=== PATIENT | male | born 1935 | race Caucasian/White ===

== ENCOUNTER 2018-02-13 03:56 | Inpatient (IN) | payer MEDICARE, OTHER ==
[2018-02-13] MEDS ORDERED: Adenosine* 3 MG/ML VIAL ONE (04:03)
[2018-02-13] MEDS ORDERED: fentaNYL* 50 MCG/ML 2 ML VIAL (100 MCG VIAL) ONE (04:11)
[2018-02-13] MEDS ORDERED: Midazolam* 1 MG/ML 5 ML VIAL (5 MG) ONE ×2 (04:11→04:17)
[2018-02-13] MEDS ORDERED: Flumazenil* 0.1 MG/ML 5 ML MDV ONE (04:21)
[2018-02-13] MEDS ORDERED: Flumazenil* 0.1 MG/ML 5 ML MDV IV ONE (05:05)
[2018-02-13] MEDS ORDERED: Midazolam* 1 MG/ML 5 ML VIAL (5 MG) SLOW PUSH ONE (05:05)
[2018-02-13] MEDS ORDERED: fentaNYL* 50 MCG/ML 2 ML VIAL (100 MCG VIAL) IV SLOW PU ONE (05:05)
[2018-02-13] MEDS ORDERED: Adenosine* 3 MG/ML VIAL IV PUSH ONE (05:07)
[2018-02-13 05:53] LABS: EGFR Non-African American 48.6 (>60)
[2018-02-13 05:56] LABS: ABS Basophils 0.1 10^3/ul (0-0.2); ABS Eosinophils 0.1 10^3/ul (0-0.6); ABS Lymphocytes 1.7 10^3/ul (1.0-4.8); ABS Monocytes 1.3 10^3/ul (0-0.8); ABS Neutrophils 8.2 10^3/ul (1.5-7.7); ABS Nucleated RBC 0 10^3/ul; Hematocrit 48 % (42-52); Hemoglobin 16.4 g/dl (14.0-18.0); Lymphocyte % 14.8 % (25-47); Mean Corpuscular HGB Conc 34 g/dl (31-36); Mean Corpuscular Hemoglobin 32 pg (27-31); Mean Corpuscular Volume 95 fL (80-94); Mean Platelet Volume 8.8 um3 (7.4-10.4); Nucleated Red Blood Cells % 0.1; Platelet Count 170 10^3/ul (150-450); Red Blood Count 5.05 10^6/ul (4.0-5.4); Red Cell Distribution Width 13 % (10.5-15); White Blood Count 11.3 10^3/ul (3.5-10.8)
[2018-02-13] MEDS ORDERED: Levothyroxine TAB* 100 MCG TAB PO SCH (06:00)
--- NOTE | 2018-02-13 07:08 | ED ---
Ranjit Jordan Julia, scribed for Felix Mcallister MD on 02/13/18 at 0414 . Palpitations / Dysrhythmia - HPI Summary HPI Summary: This patient is a 83 year old M BIBA to [facility] with a chief complaint of fast heart rate, weakness, and dizziness this evening. EMS reports that he pulled over at the police station en route to the hospital because he was unable to drive himself further. EMS reports a regular heart rate for 140 BPM. EMS reports extensive cardiac history including AK 35 years ago. - History of Current Complaint Time Seen by Provider: 02/13/18 04:01 Hx Obtained From: EMS Hx From Patient Unobtainable Due To: Extremis Timing: Constant Character: Fast Associated Signs & Symptoms: Dizzy - Allergy/Home Medications Allergies/Adverse Reactions: Allergies Allergy/AdvReac Type Severity Reaction Status Date / Time No Known Allergies Allergy Verified 02/13/18 04:30 PMH/Surg Hx/FS Hx/Imm Hx Cardiovascular History: Reports: Hx Coronary Artery Disease, Hx Myocardial Infarction EENT History: Denies: Hx Deafness Review of Systems Positive: Palpitations Neurological: Other - dizziness Positive: Weakness All Other Systems Reviewed And Are Negative: Yes Physical Exam - Summary Physical Exam Summary: Appearance: ill-appearing elderly man Skin: Warm, dry, no obvious rash, manrique Eyes: sclera anicteric, no conjunctival pallor ENT: mucous membranes moist, pharynx appears normal Neck: Supple, nontender Respiratory: Clear to auscultation, no signs of respiratory distress Cardiovascular: Tachycardia. Borderline low blood pressure. Normal S1, S2. No murmurs. Normal distal pulses in tibial and radial bilaterally. Abdomen: Soft, nontender, normal active bowel sounds present Musculoskeletal: Normal, Strength/ROM Intact Neurological: A&Ox3, awake and alert, mentation is normal, speech is fluent and appropriate, answers questions appropriately Psychiatric: affect is normal, does not appear anxious or depressed Triage Information Reviewed: Yes Vital Signs Reviewed: Yes Procedures - Additional Procedures Additional Procedures: cardioversion/defib - Pt presents with regular wide complex tachycardia, differential VT vs SVT with aberrancy. Adenosine tried without success. Emergent cardioversion felt to be indicated due to patient with borderline low BP, feeling weak and lightheaded, with ill appearance, looks manrique. Pt sedated with versed and fentanyl to good effect, cardioverted with 120 J successfully to NSR. Recovery complicated by moderate hypoxemia requiring ventimask and ultimately romazicon to reverse versed. Diagnostics - Laboratory Result Diagrams: 02/13/18 05:19 02/13/18 05:19 Lab Statement: Any lab studies that have been ordered have been reviewed, and results considered in the medical decision making process. - EKG 0406 Cardiac Rate: Tachycardia EKG Rhythm: V-Tachycardia EKG Interpretation: Wide complex regular tachycardia, likely VT vs less likely SVT w/aberrancy 0422 Cardiac Rate: NL EKG Rhythm: Sinus Rhythm ST Segment: Normal Ectopy: None EKG Comparison: Other - converted to NSR Course/Dx - Course Course Of Treatment: Hospitalist asked that cardiology be consulted. I spoke with Dr. Monteiro at 0645 regarding the patient and his course, he will see the patient on arrival to the hospital. Pt remains stable. - Diagnoses Provider Diagnoses: Ventricular tachycardia - Physician Notifications Discussed Care Of Patient With: Serafin Casillas - hospitalist Time Discussed With Above Provider: 05:00 Instructed by Provider To: Admit As Inpatient - He additonally recommends informing the electrical design engineer internal controls manager. At 06:48 Dr. Monteiro was informed of the patient and will agree to see this patient on his rounds later today. - Critical Care Time Critical Care Time: 30-74 min - Elderly man with unstable tachyarrhythmia, requiring IV antiarrhythmics and electrical cardioversion, with conscious sedation. Those procedures excluded from critical care time, pt required frequent reassessments. Total time approx 40 minutes. Discharge - Sign-Out/Discharge Documenting (check all that apply): Discharge/Admit/Transfer - Discharge Plan Condition: Improved Disposition: ADMITTED TO [facility] Referrals: Corazon Levy MD [Primary Care Provider] - - Billing Disposition and Condition Condition: IMPROVED Disposition: [facility] [place] The documentation as recorded by the Ranjit reese Julia accurately reflects the service I personally performed and the decisions made by me, Felix Mcallister MD.
--- NOTE | 2018-02-13 08:06 | RAD ---
HISTORY: Tachycardia COMPARISONS: None VIEWS: 1: frontal portable view of the chest at 5:25 AM FINDINGS: LINES AND TUBES: None. CARDIOMEDIASTINAL SILHOUETTE: The cardiac silhouette is mildly enlarged. The cardiomediastinal silhouette is otherwise normal for portable technique. PLEURA: The costophrenic angles are sharp. No pleural abnormalities are noted. LUNG PARENCHYMA: The lungs are clear. ABDOMEN: The upper abdomen is clear. There is no subphrenic gas. BONES AND SOFT TISSUES: No bone or soft tissue abnormalities are noted. IMPRESSION: MILD CARDIOMEGALY. NO ACTIVE CARDIOPULMONARY DISEASE.
[2018-02-13] MEDS ORDERED: Acetaminophen TAB* 325 MG PO PRN (08:55)
[2018-02-13] MEDS ORDERED: Metoprolol Succinate XL TAB* 25 MG PO SCH (09:00)
[2018-02-13] MEDS ORDERED: Aspirin EC TAB* 81 MG TAB.EC PO SCH (09:00)
[2018-02-13] MEDS ORDERED: Tamsulosin CAP* 0.4 MG PO SCH (09:00)
[2018-02-13] MEDS ORDERED: Finasteride TAB* 5 MG PO SCH (09:00)
[2018-02-13] MEDS ORDERED: D5NS 0.9% 1000 ML BAG* 1,000 ML IV SCH (09:00)
[2018-02-13] MEDS ORDERED: Perflutren Lipid Microsphere* 3 ML VIAL ONE (10:08)
[2018-02-13] MEDS ORDERED: Potassium Chlor TAB* 20 MEQ TAB.ER PO ONE (11:32)
--- NOTE | 2018-02-13 11:43 | HP ---
CC: Dr. Agee, [facility] Cardiology Department/ Electrophysiology Department; Dr. Schwartz; Dr. Corazon Levy * HISTORY AND PHYSICAL: DATE OF ADMISSION: 02/13/18 PRIMARY CARE PROVIDER: Dr. Corazon Levy. CHIEF COMPLAINT: Palpitations. HISTORY OF PRESENT ILLNESS: Moses Terrazas is an 83-year-old male with history of ischemic cardiomyopathy with EF of 30%, who refused ICD in the past, but he has history of ventricular tachycardia as well as paroxysmal A-flutter who presented to the hospital complaining of palpitations. He was noted to have wide ventricular complex tachycardia with a heart rate of 164, likely ventricular tachycardia or SVT with aberrancy. Adenosine did not work to pharmacologically cardiovert this patient in the emergency department, and the patient subsequently was cardioverted with DC cardioversion in the ED. The patient was successfully cardioverted to sinus rhythm, currently in sinus tachycardia. Mr. Terrazas told me that me that he started experiencing palpitations. He thinks that he is in bed but he really does not remember. He states that he waited for approximately 2 hours but he continued to feel dizzy with generalized weakness. He denies shortness of breath or chest pain. He stated that initially his pulse was fast and irregular. Otherwise, he had been in his usual state of health. He exercises 4 times a week and he works the treadmill for 10 minutes without any problems at baseline. Recently, he went to see an electrophysiology specialist in [place], Dr. Agee , on 12/27/17 who was following up on the patient's loop recorder implanted in the past. PAST MEDICAL HISTORY: 1. History of ischemic cardiomyopathy, EF of 30%. The patient refused ICD in the past. 2. History of ischemic cardiomyopathy and chronic systolic CHF. 3. History of nonsustained V-tach in the past. 4. History of paroxysmal atrial flutter in the past. 5. Status post loop recorder placement in the past. The patient still continues to have the loop recorder implanted. 6. History of anterior wall PR in 1995 when the patient was visiting [facility]. At that point, the patient was noted to have 100% LAD occlusion and medical treatment. 7. Obstructive sleep apnea, not on CPAP. 8. Hypertension. 9. Dyslipidemia. 10. Hypothyroidism. 11. History of subdural hematoma with dionicio hole placement when the patient was on Coumadin. The patient currently is okay for aspirin only. CURRENT MEDICATIONS: Include: 1. Aspirin 81 mg daily. 2. Synthroid 100 mcg daily. 3. Toprol XL 50 mg daily. 4. Flomax 0.4 mg b.i.d. 5. Vitamin C 500 mg daily. ALLERGIES: LIPITOR caused myalgias, but the patient had successfully been treated with Crestor. FAMILY HISTORY: Positive for father who of PR and mother who of "old age" in her 90s. SOCIAL HISTORY: The patient denies any tobacco, alcohol or drug use. He lives alone and he could not name a surrogate. His closest living relative is his sister who lives in [place]; her name is Yocasta. Once again, the patient does not have a surrogate that he could name in the [place]. REVIEW OF SYSTEMS: Please see history of present illness. All remaining 12 systems were reviewed with the patient and were otherwise negative. PHYSICAL EXAMINATION GENERAL: The patient is a very pleasant 83-year-old male who is in no acute distress. Alert, awake, oriented x3. VITAL SIGNS: Blood pressure of 107/66, heart rate 113 and regular, respiratory rate 24, oxygen saturation 94% on 2 L oxygen nasal cannula, temperature of 97.3. HEENT: Head: Atraumatic, normocephalic. Eyes: Pupils are equal and reactive to light and accommodation. Oropharynx clear, oral mucosa moist. NECK: Supple. No JVD. No bruits bilaterally. RESPIRATORY: Clear to auscultation bilaterally. CARDIOVASCULAR: Regular rate and rhythm. No murmur. ABDOMEN: Soft, nontender. Bowel sounds are present in all 4 quadrants. EXTREMITIES: There is no edema. Pulses are +2 bilaterally. No clubbing or cyanosis. NEUROLOGIC: Speech clear. Cranial nerves II through XII are grossly intact. Motor strength is 5/5 bilaterally. PSYCHIATRIC: The patient speaks with a rather significant Upper Sorbian accent, sometimes using some Upper Sorbian words in conversation. There is no evidence of anxiety or depression. He is a rather poor historian. LABORATORY DATA: White blood cell count 11.3, hemoglobin of 16.4, hematocrit of 48, MCV of 95, platelets 170,000. Sodium 133, potassium 3.8, chloride 101, carbon dioxide 20, BUN 21, creatinine 1.39. Liver function tests were unremarkable. Troponin initially 0.21, second troponin 0.44. Lactic acid of 2.8. Portable chest x-ray, impression: "Mild cardiomegaly. No active cardiopulmonary disease." The patient's initial EKG showed wide complex ventricular tachycardia with a heart rate at 164. Subsequent EKG showed sinus bradycardia with heart rate of 57 beats per minute, left bundle branch block, negative T waves in leads V4 to V6. There was no old EKG available in the system. ASSESSMENT/PLAN: 1. The patient is an 83-year-old male with history of ischemic cardiomyopathy with EF of 30% who has declined ICD in the past and now presents with what appears to be ventricular tachycardia. The patient had DC cardioversion in the emergency department and currently cardioverted to sinus rhythm. I will place him in the intensive care unit for followup Cardiology recommendations further. I will restart his beta-yvan at this point. 2. For his hypothyroidism, I will continue the patient's Synthroid at the current dose. The patient's TSH in the ER was 4.33. 3. For his benign prostatic hypertrophy, Flomax is going to be continued. 4. The patient has elevated creatinine. Unknown baseline. I will recheck the patient's creatinine after initial intravenous hydration. 5. DVT prophylaxis. The patient is going to be placed on heparin subcutaneously. 6. Code status. The patient requested to be do not resuscitate, but he is thinking over before signing MOLST form. For the time being, the patient understands that he is going to be a full code until MOLST is signed. TIME SPENT: Approximately 75 minutes were spent on admission of this patient, more than half that time was spent [id number] with the patient during the interview and physical exam. [id number] #: [id number] [facility] SYSTEM[facility]atherine
[2018-02-13 12:00] LABS: EGFR Non-African American 58.1 (>60)
--- NOTE | 2018-02-13 14:51 | ECHO ---
Patient: MARCE KOENIG [facility] Rec#: [id number] : 1935 Date: 02/13/2018 Age: 83y Height: 182.88 cm / 72.0 in Weight: 90.72 kg / 199.9 lbs Sex: M BSA: 2.13 Room#: ICU 1 Admit Date#: 02/13/2018 Type: Inpatient Referring: Erik Monteiro MD Reading: Venkat Koch MD Stonemason Helper: Teri Sy RDCS,RDMS CC: Corazon Levy MD Transthoracic Echocardiogram Indication: VTACH BP: 116/72 HR: 56 Rhythm: NSR Findings History: CAD, MT, ischemic cardiomyopathy, HTN, HLD, nonsustained Vtach, Aflutter Technical Comments: The study is technically limited due to poor acoustic windows. Left Ventricle: The left ventricular chamber size is normal. Mild to moderate concentric left ventricular hypertrophy is observed. There is a prominent septal knuckle. There is a focal wall motion abnormality present.The distal anterior wall, apex, and distal inferior norman are askinetic as can best be visualized in limited views. The estimated ejection fraction is 40-45%. Abnormal left ventricular diastolic function is observed. Left Atrium: The left atrium is slightly dilated. Right Ventricle: The right ventricular chamber size and systolic function are within normal limits. The right ventricle wall thickness is mildly increased. Right Atrium: The right atrium is not well visualized. The right atrial cavity size is normal. Aortic Valve: There is no evidence of aortic valve thickening. Systolic excursion of the aortic valve is normal. There is no evidence of aortic regurgitation. There is no evidence of aortic stenosis. Mitral Valve: The mitral valve leaflets are mildly thickened. There is mild mitral regurgitation. There is no evidence of mitral stenosis. Tricuspid Valve: The tricuspid valve leaflets are not thickened. There is trace tricuspid regurgitation. Unable to estimate the right ventricular systolic pressure. Pulmonic Valve: There is no evidence of pulmonic valve thickening. There is a trace pulmonic regurgitation. Pericardium: There is no significant pericardial effusion. Aorta: There is no dilatation of the ascending aorta. There is no dilatation of the aortic arch. There is mild dilatation of the aortic root. Pulmonary Artery: The main pulmonary artery is not well visualized. Venous: The inferior vena cava is dilated. There is less than 50% respiratory change in the inferior vena cava dimension. Contrast: Definity was used to optimize study. A total of 4 ml was used Conclusions The study is technically limited due to poor acoustic windows. Mild to moderate concentric left ventricular hypertrophy is observed. There is a focal wall motion abnormality present.The distal anterior wall, apex, and distal inferior norman are askinetic as can best be visualized in limited views. The estimated ejection fraction is 40-45%. There is mild mitral regurgitation. There is trace tricuspid regurgitation. There is a trace pulmonic regurgitation. Compared to report of study from 03/13/2014 the overall LV systolic function is better (was reported as 34%). Measurements Name Value Normal Range RVIDd (AP) 2D 2.8 cm (0.9 - 2.6) IVSd (2D) 1.5 cm (0.6 - 1) LVPWd (2D) 1.4 cm (0.6 - 1) LVIDd (2D) 4.4 cm (3.6 - 5.4) LVIDs (2D) 3.2 cm - LV FS (2D) 27 % (25 - 45) Aortic Annulus 2.2 cm (1.4 - 2.6) Ao root diameter (2D) 3.6 cm (2.1 - 3.5) Ascending Ao 3.4 cm (2.1 - 3.4) Aortic arch 3.4 cm (1.8 - 3.4) LA dimension (AP) 2D 4.2 cm (2.3 - 3.8) LAd ISD 4CH 5.6 cm (2.9 - 5.3) LA ISD 4CH W 3.9 cm (2.5 - 4.5) Name Value Normal Range LA ESV SP 4CH (A/L) 48.75 ml - LA ESV SP 2CH (A/L) 68.89 ml - LA ESV BP (A/L) 59.37 ml - LA ESV BP (A/L) index 28 ml/m2 - LA ESV SP 4CH (MOD) 45.5 ml - LA ESV SP 2CH (MOD) 65.59 ml - Name Value Normal Range MV E-wave Vmax 0.6 m/sec - MV deceleration time 223 msec - MV A-wave Vmax 0.5 m/sec - MV E:A ratio 1.2 ratio - P. vein S-wave Vmax 0.2 m/sec - P. vein D-wave Vmax 0.4 m/sec - P. vein S:D Vmax ratio 0.6 ratio - P. vein A-wave duration 140.5 msec - LV septal e' Vmax 0.05 m/sec - LV lateral e' Vmax 0.05 m/sec - LV E:e' septal ratio 12 ratio - LV E:e' lateral ratio 12 ratio - Name Value Normal Range AV Vmax 0.9 m/sec - AV VTI 20 cm - AV peak gradient 3.2 mmHg - AV mean gradient 1.9 mmHg - LVOT Vmax 0.7 m/sec - LVOT VTI 17 cm - LVOT peak gradient 2 mmHg - LVOT mean gradient 1.2 mmHg - LAURO Vmax 0.4 m/sec - Name Value Normal Range RAP 8 mmHg - IVC diameter 2.4 cm - Name Value Normal Range PV Vmax 0.5 m/sec - PV peak gradient 1 mmHg -
[2018-02-13] MEDS: Heparin VIAL(*) 5000 UNITS/ML VIAL (FIVE THOUSAND) SUBCUT SCH ×2 (15:44→15:59)
--- NOTE | 2018-02-13 16:22 | CONS ---
CC: Saira Schwartz MD; Dr. Corazon Levy * CARDIAC CONSULTATION REPORT: DATE OF CONSULT: 02/13/18 INDICATION FOR THE CONSULT: The patient with sustained V-tach, known cardiac history, assess cardiac status. HISTORY OF PRESENT ILLNESS: The patient is an 83-year-old gentleman known to [facility] through Dr. Saira Schwartz who follows him for his cardiac condition. He was last seen in the office by Dr. Schwartz on 05/05/17. His cardiac history is extensive in nature with a reported anterior wall myocardial [place] with 100% LAD occluded that the decision was made to treat medically with an ischemic cardiomyopathy. 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 He also has history of ventricular tachycardia that was noted on a Reveal download back in 2012. He has an laundry supervisor at [facility], Dr. Juan Pablo Agee, who has followed him for his cardiac arrhythmias. He recently saw him just this past December on 12/27/17, and at that time Dr. Agee continued to offer Mr. Terrazas an ICD. He continued to refuse that modality and maintained metoprolol for arrhythmia suppression. It is not clear to me at that time whether or not a decision of trying to start another drug, such as amiodarone, was ever offered. Dealing with this hospitalization, the patient was in his usual state of mind and then in bed at 11 p.m., he just did not feel quite right. He checked his pulse and noted it to be irregular and rapid, in and out of it at times. He was in bed for some 2 hours and eventually felt he needed further attention. He denied specific chest, throat, jaw, or arm discomfort. He denied any profound shortness of breath or immediate lightheaded, syncopal or near syncopal sensation. At 2:30 in the morning, he actually drove to the police station who then summoned the EMS to bring him by ambulance. The EMS found him to be in wide complex tachycardia and brought him to the emergency room. In the emergency room, initially adenosine was tried. Eventually, the patient was electrical cardioverted to sinus rhythm. Overnight, he has had initial cardiac enzymes drawn that show an initial troponin at 0.21 increasing to 0.44 at the time when I saw him in consult. He is feeling well. Denying any significant lightheaded, chest, throat, jaw, or arm discomfort currently, he denies any jass PND or orthopnea. Other laboratory results at the ER presentation was a lactic acid level of 2.8. His potassium was 3.8 and his magnesium was 2.0. His BUN and creatinine were 21 and 1.39 which on repeat later at 11:35 was 19 and 1.2. His troponin repeated at 0.71 on repeat as well. White count was 11, 300, hemoglobin and hematocrit 16.4 and 48, with platelet count 170,000. His LFTs were normal with a SGOT of 29, SGPT of 26 and bilirubin of 0.7. Of note, his most recent echocardiogram that we have available to us dates back to 03/13/14 when his EF was 34% with scarring of the apical wall. He had mild mitral regurgitation, mild dilatation in the ascending aorta. He has not had any stress testing done and is very hesitant about any type of testing that is being offered. The patient does have an implantable loop recorder. PAST MEDICAL HISTORY: Includes: 1. History of anterior wall VA. 2. Ischemic cardiomyopathy. 3. Atrial flutter. 4. Ventricular tachycardia. 5. Subdural hematoma in 2013 when he was on Coumadin with an INR of only 1.9. 6. Dyslipidemia. 7. Hypertension. 8. Hypothyroidism. 9. Prostate disease. 10. Lung nodule. 11. Reported sleep apnea. PAST SURGICAL HISTORY: Includes the brain dionicio holes done in January 2014. CURRENT MEDICATIONS: His current medications when we last saw him in the office had included: 1. Metoprolol succinate 75 mg a day. 2. Levothyroxine 100 mcg a day. 3. Flomax 0.4 mg twice a day. 4. Vitamin C. 5. Adult aspirin 81 mg a day. 6. Finasteride, we believe 5 mg once a day. FAMILY HISTORY: Father had an VA. Mother 93 years old. SOCIAL HISTORY: He is single and lives alone. He is retired. He never smoked. He occasionally consumes alcohol and denies illicit drug usage. He reports that in the past he has exercised routinely 2 times a day a week in the gym. PHYSICAL EXAMINATION: Vital Signs: When I see him reveals blood pressure of 145/85, pulse is regular at 70. Neck: Supple, but with no obvious increased JVP. Carotid with good upstroke in volume without definitive bruits. HEENT: Conjunctivae are pink. Sclerae are clear. Lungs: Reveal no accessory muscle usage. There is fair to good excursion. There is no active rales, rhonchi, or wheezes. Heart: Reveals no visible heaves, no palpable heaves or thrills. Normal S1, S2. Heart sounds are slightly distant in nature. I do not appreciate a significant S3, S4 gallop or systolic or diastolic murmur. Heart sounds are somewhat distant. Abdomen: Obese, soft, nontender. Extremities: Without significant edema bilaterally. Peripheral pulses are present femorally bilaterally and distally are present as well. Neuro: The patient seems alert and awake. He seems oriented, but he does ramble at times. Skin: Warm and dry with no cyanosis or rashes appreciated. Psychological: The patient seems to have a fairly normal affect, although at times appears to confront me about issues. DIAGNOSTIC STUDIES: Electrocardiogram at the time of admission dated 02/13/18 timed 3:14 a.m. showed ventricular tachycardia with the heart rate of 164. Repeat EKG then done after electrical cardioversion with 120 Joules synchronized revealed sinus rhythm, heart rate 81. There were poor R waves across the precordium out to as far as V5 with T-wave inversion in V2 through V6. Poor R waves in III and aVF were also noted low voltage in most of the anterior leads were seen. Repeat EKG from 7:22 a.m. showed biphasic T-wave in V2 and V3 with minimal residual ST elevation with T-wave inversions as mentioned in V4 through 6. T-wave inversion was also noted now in II, III, and aVF. ASSESSMENT: Moses now presents with what appears to be sustained ventricular tachycardia for which I imagine at least 1 hour, if not longer. His cardiac enzymes are minimally elevated and most likely deal with the prior stress of his known cardiomyopathy. At this point in time, we will repeat his echocardiogram to look at his overall LV function and I did have a lengthy discussion with him about the idea of a defibrillator. At our institution, Dr. Monteiro is the only person who puts these in and the patient adamantly refuses to have any involvement with Dr. Monteiro due to prior experiences that I did not discuss further with. Given the fact that a potential biventricular pacing defibrillator may be warranted, he may need the transfer up to Dr. Agee who he is already experienced with as his primary laundry supervisor. The patient will decide whether or not he wants to proceed in that direction. I also did bring up the issue of amiodarone loading with 200 mg t.i.d. and he is going to even think that over after we gave him some more information about amiodarone. I did personally discuss the case with Dr. Agee and he stated that if the patient is willing to undergo implantable defibrillator, he would accept him in transfer up. We will await the patient's decisions. We will try to obtain any LINQ recording that may have been captured regarding last night's events. [id number] #: [id number] TOMASZ
[2018-02-13] MEDS ORDERED: Metoprolol Tartrate TAB* 25 MG PO SCH (17:00)
[2018-02-13 17:29] VITALS: BP 124/64
--- NOTE | 2018-02-14 12:58 | TRS ---
CC: Dr. Corazon Levy; Dr. Koch; Dr. Schwartz; Dr. Agee, [facility] Cardiology Department; Dr. Smith, Cardiology Department at [facility] TRANSFER SUMMARY: DATE OF ADMISSION: 02/13/18 DATE OF PLANNED AND ANTICIPATED TRANSFER: To [facility], 02/13/18 PRIMARY CARE PROVIDER: Dr. Corazon Levy. REASON FOR TRANSFER: Sustained ventricular tachycardia requiring cardioversion in the ED. SECONDARY DIAGNOSES: 1. History of ischemic cardiomyopathy. 2. History of chronic systolic congestive heart failure. 3. History of nonsustained ventricular tachycardia in the past. 4. Paroxysmal atrial flutter in the past. 5. History of status post loop recorder placement in the past. 6. History of anterior wall myocardial infarction in 1995 with entirely occluded LAD. The patient was medically treated and that was in [facility]. 7. History of obstructive sleep apnea, not on CPAP. 8. Hypertension. 9. Dyslipidemia. 10. Hypothyroidism. 11. History of subdural hematoma with dionicio hole placement when the patient was on Coumadin. CURRENT MEDICATIONS: At the time of transfer include: 1. Metoprolol tartrate 25 mg every 6 hours as scheduled. 2. Aspirin 81 mg daily. 3. Proscar 5 mg daily. 4. Heparin 5000 units subcutaneously every 8 hours for DVT prophylaxis. 5. Flomax 0.4 mg b.i.d. 6. Aspirin 81 mg daily. LABORATORY DATA AND STUDIES PERFORMED DURING THE HOSPITAL STAY: Included: On 02/13/18, sodium of 137, potassium of 4.0, chloride 105, carbon dioxide 25, BUN 19, creatinine 1.19. Troponin was 0.21 at admission and 0.71 at noon, 6 hours after admission. Lactic acid at admission was 2.8. Repeat lactic acid was 2.0. Transthoracic echocardiogram documented on 02/13/18 showed EF of 40% to 45% with moderate concentric LVH. There was a focal wall motion abnormality present in the distal anterior wall apex and distal inferior wall akinetic. There was mild mitral regurgitation, trace tricuspid regurgitation, trace pulmonary regurgitation. Compared to the study of [email or web address], overall LV systolic function was better, was reported at 34% previously. CONSULTATIONS DURING THE HOSPITAL STAY: Included Dr. Koch from Cardiology. HOSPITALIZATION COURSE: Moses Terrazas is an 83-year-old male who presented to the ED complaining of palpitations, noted to be in monomorphic ventricular tachycardia. His pressures were reported at 100 systolically when it happened, but he felt dizziness and generalized weakness. First adenosine was pushed with no result and subsequently he was cardioverted to sinus tachycardia. He continues to be in sinus rhythm throughout his hospital stay. He was admitted to the intensive care unit. Dr. Koch saw the patient in consultation and recommended transfer to tertiary care center for an ICD consideration. The patient agreed to be transferred. His electrophysiology specialist, Dr. Agee, is at [facility]. The patient was offered to be transferred to [facility] which is closer, but preferred to be transferred to [place] knowing that he may require to pay an additional amount of several hundreds dollars of difference due to further transportation than from [facility]. The patient agreed to being transferred to [facility] and is aware of the additional cost involved. The patient also was offered to be treated with amiodarone, but so far he refused. He was given by Dr. Koch, literature to read and he is considering it and weighing the pros and cons of side effects and benefits of treatment. At this point, the patient is going to be transferred to [facility] under the care of Dr. Smith who accepted the patient from cardiology department at [place]. Dr. Smith requested for the patient to be placed on metoprolol tartrate 25 mg every 6 hours on a scheduled basis instead of Toprol XL which will be started prior to the patient's transfer. CONDITION AT TRANSFER: Same as at admission. The patient is oriented x2 with no evidence of acute distress. Otherwise, the physical exam is unchanged from admission and please refer to admission history and physical. Please also note at admission the patient's creatinine was 1.39. The patient has a known baseline creatinine, but his creatinine repeat 6 hours later after gentle intravenous hydration was down to 1.19. The patient's troponins continued to be elevated at 0.71 at discharge, but he had no complaints of chest pain or shortness of breath. The patient was accepted by Dr. Smith from cardiology department at [facility] in [facility] and he is going to be transferred there for further evaluation for placement of ICD. Please note that this is a short summary of the patient's hospitalization. Please refer to further medical records for details. TIME SPENT: Approximately 55 minutes were spent on the patient's transfer. [id number]/[facility] #: [id number] [facility] CENTERKatherine
== END 2018-02-13 18:31 | disposition short-term general hospital (02) | DRG 309 ==
LOC: EDBD → ED 03:56 → ICU 08:55 → MERGE 08:55
PROVIDERS: ADMIT Internal Medicine; ATTEND Internal Medicine
PROC: 5A2204Z Restoration of Cardiac Rhythm, Single (ICD-10-PCS; principal; 2018-02-13)
DX: I47.2 Ventricular tachycardia (principal); I50.22 Chronic systolic (congestive) heart failure; I25.10 Atherosclerotic heart disease of native coronary artery without angina pectoris; I25.5 Ischemic cardiomyopathy; N40.0 Benign prostatic hyperplasia without lower urinary tract symptoms; R74.8 Abnormal levels of other serum enzymes; G47.33 Obstructive sleep apnea (adult) (pediatric); I11.0 Hypertensive heart disease with heart failure; E78.5 Hyperlipidemia, unspecified; I77.819 Aortic ectasia, unspecified site; R91.1 Solitary pulmonary nodule; E03.9 Hypothyroidism, unspecified; I08.1 Rheumatic disorders of both mitral and tricuspid valves; Z88.8 Allergy status to other drugs, medicaments and biological substances; I25.2 Old myocardial infarction; Z82.49 Family history of ischemic heart disease and other diseases of the circulatory system; Z72.89 Other problems related to lifestyle; Z79.82 Long term (current) use of aspirin; Z79.01 Long term (current) use of anticoagulants
CPT/HCPCS: 36415; 71045; 80048; 80053; 83605; 83735; 84443; 84484; 85025; 87641; 93005; 93306; 99285; A9270-GY; C8929; J0153; J1644; J2250; J3010